=== PATIENT | female | born 1990 | race Caucasian/White ===

== ENCOUNTER 2022-04-28 20:32 | Emergency (ER) | payer OTHER ==
[~2022-04-28] VITALS: Ht 165.1 cm; Wt 97.0 kg
[2022-04-28] MEDS ORDERED: LORAZEPAM 0.5MG TABLET PO ONE (21:15)
[2022-04-28 22:04] VITALS: BP 125/69
== END 2022-04-28 22:59 | disposition home or self-care (01) ==
LOC: ER 20:32
DX: F41.0 Panic disorder [episodic paroxysmal anxiety] (principal); Z63.79 Other stressful life events affecting family and household
CPT/HCPCS: 93005; 99283